=== PATIENT | male | born 1980 ===

== ENCOUNTER 2023-05-13 04:50 | Outpatient (CLI) | payer SELFPAY ==
[2023-05-16 11:09] LABS: Varicella IgG Antibody Positive (See Note)
[2023-05-16 11:11] LABS: Measles IgG Antibody Positive (See Note); Mumps Antibody IgG Positive (See Note); Rubella IgG Ab (UVM) Positive (See Note)
[2023-05-16 13:50] LABS: TB Interpretation Negative (Negative)
== END 2023-05-13 04:51 | disposition home or self-care (01) ==
LOC: LBO 04:51
PROVIDERS: Visit Provider Nurse Practitioner Family
DX: Z02.1 Encounter for pre-employment examination (principal)
CPT/HCPCS: 36415; 86787; 86480; 86735; 86762; 86765